=== PATIENT | female | born 1960 | race Caucasian/White ===

== ENCOUNTER 2021-10-27 15:03 | Emergency (ER) | payer SELFPAY ==
[2021-10-27] MEDS ORDERED: Sodium Chloride 0.9% 1,000 ML IV ONE (15:04)
[2021-10-27] MEDS ORDERED: Acetaminophen 500 MG Tab PO ONE (15:08)
[2021-10-27 15:40] LABS: BLOOD UREA NITROGEN,BUN 15 mg/dL (7.0-18.0); CARBON DIOXIDE,CO2 26.4 mmol/L (21.0-32.0); CHLORIDE,CL 107 mmol/L (98-107); GLUCOSE RANDOM 143 mg/dL (74-106); POTASSIUM,K 5.1 mmol/L (3.5-5.1); SODIUM,NA 140 mmol/L (136-145)
== END 2021-10-27 16:45 | disposition home or self-care (01) ==
LOC: MW.ED 15:03
DX: R56.9 Unspecified convulsions (principal)
CPT/HCPCS: 36415; 70450; 80053; 80307; 83605; 85025; 93005; 96360; 99285; J7030

== ENCOUNTER 2022-05-04 16:06 | Emergency (ER) | payer SELFPAY ==
[2022-05-04] MEDS ORDERED: Albuterol/Ipratropium 3.0-0.5 MG/3 ML Neb Soln NEB ONE (17:09)
[2022-05-04 18:05] LABS: CORONAVIRUS COVID-19 NAA NEGATIVE (NEGATIVE); INFLUENZA A NAA NEGATIVE (NEGATIVE); INFLUENZA B NAA NEGATIVE (NEGATIVE); RESPIRATORY SYNCYTIAL VIR NAA NEGATIVE (NEGATIVE)
== END 2022-05-04 20:15 | disposition home or self-care (01) ==
LOC: MW.ED 16:06
DX: J18.9 Pneumonia, unspecified organism (principal); Z72.0 Tobacco use; Z20.822 Contact with and (suspected) exposure to COVID-19
CPT/HCPCS: 0241U; 36415; 71046; 85025; 99283; J7620-GY

== ENCOUNTER 2024-02-08 19:11 | Emergency (ER) | payer MEDICAID ==
[2024-02-08 20:04] LABS: BILIRUBIN,URINE NEGATIVE (NEGATIVE); COLOR,URINE YELLOW; GLUCOSE,URINE NEGATIVE (NEGATIVE); KETONES,URINE TRACE mg/dL (NEGATIVE); LEUKOCYTE ESTERASE,URINE SMALL (NEGATIVE); NITRITE,URINE POSITIVE (NEGATIVE); OCCULT BLOOD,URINE TRACE-INTACT (NEGATIVE); PROTEIN,URINE TRACE mg/dL (NEGATIVE); UROBILINOGEN,URINE 0.2 EU/dL (<2.0)
[2024-02-08 20:05] LABS: APPEARANCE,URINE SLT CLOUDY
[2024-02-08 20:15] LABS: BACTERIA,URINE FEW (NEGATIVE); EPITHELIAL CELLS,URINE OCCASIONAL (NONE-FEW); RBC,URINE 0-5 (0-2/HPF); WBC,URINE 20-30 (0-5/HPF)
[2024-02-08 21:44] LABS: CORONAVIRUS COVID-19 NAA NEGATIVE (NEGATIVE); INFLUENZA A NAA NEGATIVE (NEGATIVE); INFLUENZA B NAA NEGATIVE (NEGATIVE); RESPIRATORY SYNCYTIAL VIR NAA NEGATIVE (NEGATIVE)
[2024-02-08] MEDS: Cephalexin 500 MG Cap PO ONE (22:03)
== END 2024-02-08 22:42 | disposition home or self-care (01) ==
LOC: MW.ED 19:11
DX: J06.9 Acute upper respiratory infection, unspecified (principal); N39.0 Urinary tract infection, site not specified; Z88.1 Allergy status to other antibiotic agents; Z79.899 Other long term (current) drug therapy; Z75.8 Other problems related to medical facilities and other health care
CPT/HCPCS: 0241U; 71046; 81001; 87086; 99283; A9270; 87088; 87186